=== PATIENT | female | born 1990 | race American Indian/Alaskan Native ===

== ENCOUNTER 2020-01-10 03:13 | Emergency (ER) | payer SELFPAY ==
[2020-01-10 03:35] VITALS: BP 110/46
[2020-01-10 04:09] LABS: Bacteria,Urine 4+ /HPF (Negative); Bilirubin,Urine NEG (Negative); Blood,Urine NEG (Negative); Color,Urine Yellow (Yellow); Mucus,Urine FEW /HPF; Protein,Urine <15 mg/dL mg/dL (Negative); Urobilinogen,Urine < 2.0 mg/dL (<2.0)
[2020-01-10] MEDS ORDERED: LIDOCAINE-MPF (1%) 10 MG/1 ML VIAL 5 ML INFILTRATI ONE (04:50)
[2020-01-10] MEDS ORDERED: AZITHROMYCIN 250 MG TAB PO ONE (04:50)
--- NOTE | 2020-01-10 04:51 | Emergency Department Report ---
ED Female HPI - General Chief complaint: Urogenital-Female Stated complaint: VAGINAL DISCHARGE Source: patient Mode of arrival: Ambulatory Limitations: No Limitations - History of Present Illness Initial comments: Patient is a A0 29-year-old -Martiniquais female with no past medical history presents to the ED with complaint of dysuria, vaginal discharge and urinary frequency and urgency for the last 1 week, worse in the last 2 days. Patient also states that she would like to be evaluated for STD because her boyfriend was exposed to another woman who had been diagnosed with trichomonas over 6 months ago. Patient denies fever, chills, dyspareunia, dizziness, syncope, fever, chills, abdominal pain, diarrhea, nausea and vomiting or low back pain and vaginal bleeding. MD Complaint: vaginal discharge, dysuria, possible STD -: Sudden, week(s) (1) Location: other (Vaginal) Radiation: non-radiating Severity: moderate Severity scale (0 -10): 4 Quality: dull Consistency: intermittent Improves with: none Worsens with: urination Are you Now?: No Last Menstrual Period: 01/04/20 EDC: 10/10/20 Associated Symptoms: vaginal discharge, dysuria. denies: vaginal bleeding, abdominal pain, nausea/vomiting, fever/chills, headaches, loss of appetite, hematuria, rash, seizure, shortness of breath, syncope - Related Data Sexually active: Yes : 3 Para: 4 A: 0 Previous Rx's Medication Instructions Recorded Last Taken Type Fluconazole (Nf) [Diflucan TAB] 150 mg PO ONCE #1 tablet 01/10/20 Unknown Rx cephALEXin [Keflex] 500 mg PO Q8HR #30 capsule 01/10/20 Unknown Rx metroNIDAZOLE [Flagyl] 500 mg PO Q12HR #14 tab 01/10/20 Unknown Rx Allergies Allergy/AdvReac Type Severity Reaction Status Date / Time No Known Allergies Allergy Unverified 01/10/20 03:26 ED Review of Systems ROS: Stated complaint: VAGINAL DISCHARGE Other details as noted in HPI Constitutional: denies: chills, fever Eyes: denies: eye pain, eye discharge, vision change ENT: denies: ear pain, throat pain Respiratory: denies: cough, shortness of breath, wheezing Cardiovascular: denies: chest pain, palpitations Endocrine: no symptoms reported Gastrointestinal: denies: abdominal pain, nausea, diarrhea Genitourinary: urgency, dysuria, frequency, discharge. denies: abnormal menses, dyspareunia Musculoskeletal: denies: back pain, joint swelling, arthralgia Skin: denies: rash, lesions Neurological: denies: headache, weakness, paresthesias Psychiatric: denies: anxiety, depression Hematological/Lymphatic: denies: easy bleeding, easy bruising ED Past Medical Hx - Social History Smoking Status: Never Smoker Substance Use Type: None - Medications Home Medications: Home Medications Medication Instructions Recorded Confirmed Last Taken Type Fluconazole (Nf) [Diflucan TAB] 150 mg PO ONCE #1 tablet 01/10/20 Unknown Rx cephALEXin [Keflex] 500 mg PO Q8HR #30 capsule 01/10/20 Unknown Rx metroNIDAZOLE [Flagyl] 500 mg PO Q12HR #14 tab 01/10/20 Unknown Rx ED Physical Exam - General Limitations: No Limitations General appearance: alert, in no apparent distress - Head Head exam: Present: atraumatic, normocephalic, normal inspection - Eye Eye exam: Present: normal appearance, PERRL, EOMI Pupils: Present: normal accommodation - ENT ENT exam: Present: normal exam, normal orophraynx, mucous membranes moist, TM's normal bilaterally, normal external ear exam - Neck Neck exam: Present: normal inspection, full ROM. Absent: tenderness - Respiratory Respiratory exam: Present: normal lung sounds bilaterally. Absent: respiratory distress, wheezes, rales, rhonchi, chest wall tenderness, decreased breath sounds, prolonged expiratory - Cardiovascular Cardiovascular Exam: Present: regular rate, normal rhythm, normal heart sounds. Absent: systolic murmur, diastolic murmur, rubs, gallop - GI/Abdominal GI/Abdominal exam: Present: soft, normal bowel sounds. 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 Absent: tenderness, CVA tenderness (R), CVA tenderness (L), muscle spasm, paraspinal tenderness, vertebral tenderness - Neurological Exam Neurological exam: Present: alert, oriented X3, CN II-XII intact, normal gait, reflexes normal - Psychiatric Psychiatric exam: Present: normal affect, normal mood - Skin Skin exam: Present: warm, dry, intact, normal color. Absent: rash ED Course Vital Signs 01/10/20 03:21 Temperature 98.3 F Pulse Rate 87 Respiratory 18 Rate Blood Pressure 110/46 O2 Sat by Pulse 98 Oximetry ED Medical Decision Making - Medical Decision Making This is a A0 29-year-old -Martiniquais female with no past medical history presents to the ED with complaint of dysuria, vaginal discharge and urinary frequency and urgency for the last 1 week, worse in the last 2 days. Patient also states that she would like to be evaluated for STD because her boyfriend was exposed to another woman who had been diagnosed with trichomonas over 6 months ago. In the ED, patient is alert and oriented x3 and is not in distress. Urinalysis shows significant urinary tract infection and wet prep showed a positive test for Gardnerella vaginalis but was negative for trichomonas and Radha. Patient was treated in the ED empirically for STD including gonorrhea and chlamydia with Rocephin and azithromycin. Patient was discharged home on oral antibiotics for urinary tract infection and for bacterial vaginosis. Patient was advised to follow-up with a health department or [employer] physician for further STD testing including HIV and syphilis. Patient was advised to have her sexual partner also get tested at the health department. Patient was advised to return to the ED immediately if symptoms get worse. - Differential Diagnosis UTI; STD; Trichomonas; BV; ; Ovarian cyst Critical care attestation.: If time is entered above; I have spent that time in minutes in the direct care of this critically ill patient, excluding procedure time. ED Disposition Clinical Impression: Acute urinary tract infection, Bacterial vaginosis, STD (sexually transmitted d isease) Disposition: DC-01 TO HOME OR SELFCARE Is pt being admited?: No Does the pt Need Aspirin: No Condition: Stable Instructions: Bacterial Vaginosis (ED), Sexually Transmitted Diseases (ED), Urinary Tract Infection in Women (ED) Additional Instructions: Lab test results showed significant urinary tract infection and was positive for bacterial vaginosis. Chlamydia and gonorrhea test results are pending but you were treated empirically for the same regardless of the test results which usually get relief within 48 hours from today. Therefore take medications with food, drink plenty of fluids and follow-up with a health department or [employer] physician for further STD testing including HIV and syphilis. Ensure that you are sexual partner also gets tested and treated at the health department for the same. Return to the ED immediately if symptoms get worse. Prescriptions: Fluconazole (Nf) [Diflucan TAB] 150 mg PO ONCE #1 tablet metroNIDAZOLE [Flagyl] 500 mg PO Q12HR #14 tab cephALEXin [Keflex] 500 mg PO Q8HR #30 capsule Referrals: [facility] [Outside] - 3-5 Days Forms: STI Treatment and Prevention Time of Disposition: 05:24 Print Language: NORWEGI[place]
== END 2020-01-10 05:30 | disposition home or self-care (01) ==
LOC: ED 03:13
DX: N39.0 Urinary tract infection, site not specified (principal); N76.0 Acute vaginitis; A64 Unspecified sexually transmitted disease; Z79.899 Other long term (current) drug therapy
CPT/HCPCS: 81001; 87086; 87210; 87591; 96372; 99283; J0696; 87076; 87186